=== PATIENT | female | born 1995 | race African-American/Black ===

== ENCOUNTER 2019-08-16 12:31 | Emergency (ER) | payer OTHER ==
[~2019-08-16] VITALS: Ht 154.9 cm; Wt 68.0 kg
[2019-08-16 12:40] VITALS: TEMP 98.1
[2019-08-16 15:08] VITALS: BP 118/74
== END 2019-08-16 15:09 | disposition home or self-care (01) ==
LOC: ED 12:31
DX: N39.0 Urinary tract infection, site not specified (principal)
CPT/HCPCS: 81000; 81025; 87077; 87086; 87088; 87186; 96372; 99283; J0696